=== PATIENT | female | born 1995 | race Two or more races ===

== ENCOUNTER 2018-04-24 03:42 | Emergency (ER) | payer OTHER ==
[~2018-04-24] VITALS: Ht 170.2 cm; Wt 81.6 kg
[2018-04-24] MEDS ORDERED: ALBUTEROL2.5 MG/3 M IH (07:02)
[2018-04-24] MEDS ORDERED: TUSSIN DM MAX118 ML PO (07:02)
== END 2018-04-24 07:23 | disposition home or self-care (01) ==
LOC: ER 03:42
DX: J06.9 Acute upper respiratory infection, unspecified (principal); R50.9 Fever, unspecified

== ENCOUNTER 2018-05-03 05:47 | Day surgery (SDC) | payer OTHER ==
[~2018-05-03 05:47] MED LIST: ALBUTEROL2.5 MG/3 M IH; TUSSIN DM MAX118 ML PO
== END 2018-05-03 13:45 | disposition home or self-care (01) ==
LOC: CIR.AMB 05:47
DX: N93.8 Other specified abnormal uterine and vaginal bleeding (principal)

== ENCOUNTER 2020-03-31 09:23 | Emergency (ER) | payer OTHER ==
[~2020-03-31] VITALS: Ht 170.2 cm; Wt 96.6 kg
[2020-03-31] MEDS ORDERED: ZOFRAN8 MG PO (12:31)
[2020-03-31] MEDS ORDERED: PEPCID AC20 MG PO (12:31)
== END 2020-03-31 12:48 | disposition home or self-care (01) ==
LOC: ER 09:23
DX: K52.9 Noninfective gastroenteritis and colitis, unspecified (principal)

== ENCOUNTER → 2021-09-27 | Emergency (ER) | payer OTHER ==
[~2021-09-27] VITALS: Ht 170.2 cm; Wt 88.5 kg
[~2021-09-27] MED LIST changes: +PEPCID AC20 MG PO; +ZOFRAN8 MG PO
== END | disposition home or self-care (01) ==
LOC: ER 18:01
DX: L50.0 Allergic urticaria (principal)

== ENCOUNTER 2021-12-23 12:42 | Emergency (ER) | payer OTHER ==
[~2021-12-23] VITALS: Ht 170.2 cm; Wt 88.5 kg
[2021-12-23] MEDS ORDERED: FLONASE16 GM NASAL (18:51)
== END 2021-12-23 18:53 | disposition home or self-care (01) ==
LOC: ER 12:42
DX: J32.9 Chronic sinusitis, unspecified (principal); Z20.822 Contact with and (suspected) exposure to COVID-19

== ENCOUNTER 2022-01-22 14:07 | Emergency (ER) | payer OTHER ==
[~2022-01-22] VITALS: Ht 170.2 cm; Wt 86.2 kg
[~2022-01-22 14:07] MED LIST changes: +FLONASE16 GM NASAL
== END 2022-01-22 17:37 | disposition home or self-care (01) ==
LOC: ER 14:07
DX: B34.9 Viral infection, unspecified (principal); Z20.822 Contact with and (suspected) exposure to COVID-19

== ENCOUNTER 2024-04-16 14:41 | Emergency (ER) | payer OTHER ==
[~2024-04-16] VITALS: Ht 170.2 cm; Wt 95.3 kg
[2024-04-16 16:57] LABS: HEMATOCRIT 42.3 % (36.0-45.00); HEMOGLOBIN 14.8 g/dL (12.0-15.00); MEAN CELL VOLUME 88.4 fL (80.00-100.00); MEAN CORPUSCULAR HGB CONC 35.1 g/dl (32.0-36.0); PLATELET COUNT 279 K/uL (150-450); RED BLOOD COUNT 4.78 M/uL (4.00-6.00); RED CELL DISTRIBUTION WIDTH 14.6 % (11.5-14.5)
[2024-04-16 17:12] LABS: CALCIUM 9.4 mg/dL (8.5-10.1); CREATININE SERUM 0.85 mg/dL (0.55-1.02); GFR 79.07; POTASSIUM 3.48 mEq/L (3.5-5.1)
[2024-04-16 17:13] LABS: URINE APPEARANCE Cloudy; URINE BILIRRUBIN Negative (NEGATIVE); URINE BLOOD Negative; URINE COLOR Yellow; URINE GLUCOSE Negative (NEGATIVE); URINE KETONE Trace (NEGATIVE); URINE LEUKOCYTE Moderate; URINE NITRATE Negative; URINE PROTEIN Negative (NEGATIVE)
[2024-04-16 17:14] LABS: URINE BACTERIA 1316.6 uL (0.0-1933); URINE EPITHELIAL CELLS 26.1 uL (0.0-38.8); URINE RBC 7.7 uL (0.0-20.8); URINE WBC 44.8 uL (0.0-23.2)
[2024-04-16 17:39] LABS: URINE CAST 0.15 uL (0.0-1.40)
[2024-04-16] MEDS ORDERED: DIPHENHYDRAMINE HCL 12.5 MG/5 ML BLIST.PACK PO STA (17:52)
[2024-04-16] MEDS ORDERED: CEFTRIAXONE SODIUM 1,000 MG VIAL IM STA (17:54)
[2024-04-16] MEDS ORDERED: DIPHENHYDRAMINE HCL 12.5 MG/5 ML BLIST.PACK PO ONE (18:02)
[2024-04-16] MEDS ORDERED: CEFTRIAXONE SODIUM 1,000 MG VIAL ONE (18:02)
== END 2024-04-16 18:34 | disposition home or self-care (01) ==
LOC: ER 14:42
PROVIDERS: General Practice
DX: B34.9 Viral infection, unspecified (principal); T78.40XA Allergy, unspecified, initial encounter; Z88.6 Allergy status to analgesic agent; Z20.822 Contact with and (suspected) exposure to COVID-19